=== PATIENT | male | born 1950 | race Caucasian/White ===

== ENCOUNTER 2017-03-18 19:07 | Inpatient (IN) | payer OTHER, MEDICAID ==
[~2017-03-18] VITALS: Ht 180.3 cm; Wt 88.0 kg
--- NOTE | 2017-03-18 19:11 | NUR ---
Patient ambulated to bed 3. RN evaluating patient at bedside. EKG completed by EMT.
[2017-03-18 19:15] VITALS: BP 179/92
--- NOTE | 2017-03-18 19:20 | NUR ---
67Y M BIB FAMILY C/O CHEST PAIN/AB PAIN X 1 DAY. PT STATES PAIN RESEMBLES AB PAIN LIKE GAS. PT STATES BURPING RELIEVES PAIN. PT STATES PAIN IS NON RADIATING, SUBSTERNAL. PT AAOX4. BREATHING IS UNLABORED AND CLEAR BI LAT.
[2017-03-18 19:41] LABS: BASOPHILS # (AUTO) 0.3 K/uL (0.00-0.22); EOSINOPHILS # (AUTO) 0.3 K/uL (0-0.4); HEMATOCRIT 40.2 % (36-52); HEMOGLOBIN 13.4 g/dL (12.0-18.0); LYMPHOCYTES # (AUTO) 2.1 K/uL (2.0-11.5); MEAN CORPUSCULAR HEMOGLOBIN 30 pg (27-31); MEAN CORPUSCULAR HGB CONC 33 g/dL (33-37); MEAN CORPUSCULAR VOLUME 89 fL (80-94); MONOCYTES # (AUTO) 0.6 K/uL (0.8-1.0); PLATELET COUNT (AUTO) 204 K/uL (140-450); RED BLOOD CELL COUNT(AUTO) 4.52 MIL/uL (4.20-6.10); RED CELL DISTRIBUTION WIDTH 13.4 % (11.6-13.7); WHITE BLOOD COUNT (AUTO) 11.3 K/uL (4.8-10.8)
[2017-03-18 19:56] LABS: PARTIAL THROMBOPLASTIN TIME 25.6 secs (22-35.6); PROTHROMBIN TIME 10.4 secs (10.8-13.4)
--- NOTE | 2017-03-18 19:57 | NUR ---
Dr. Yanez evaluating patient at bedside.
[2017-03-18 19:59] LABS: ALBUMIN 3.9 g/dL (3.4-5.0); ANION GAP 11.9 (8-16); CALCIUM 9.2 mg/dL (8.5-10.1); CARBON DIOXIDE 30.1 mmol/L (21-32); CREATININE 1.2 mg/dL (0.7-1.3); TOTAL BILIRUBIN 0.3 mg/dL (0.0-1.0); TOTAL PROTEIN, SERUM 7.3 g/dL (6.4-8.2)
[2017-03-18] MEDS ORDERED: NITROGLYCERIN 2% 1 GM PKT TP ONE (20:00)
[2017-03-18] MEDS ORDERED: MORPHINE SULFATE 4 MG/ML SYR IVP ONE ×2 (20:00→20:55)
[2017-03-18] MEDS ORDERED: ENALAPRILAT 2.5 MG/2 ML VIAL IVP ONE ×2 (20:00→20:50)
[2017-03-18] MEDS ORDERED: ASPIRIN 81 MG TAB.CHEW PO ONE (20:00)
--- NOTE | 2017-03-18 21:19 | NUR ---
Patient will be admitted to care of DR FOOTE . Admited tO TELE 119A. Will go to room 119A. Belongings list completed. Report to MEHRDAD WEINBERG .
--- NOTE | 2017-03-18 21:25 | NUR ---
RECEIVED FROM ER PER [place] ACCOMPANIED BY FAMILY MEMBER . AWAKE AND ALERT. ROM X 4. CLEAR SPEECH. NO SOB. TELEMETRY MONITORING ON THE FLOOR. DX. OF CHEST PAIN/ANGINA. CARE PLANS FOR THE NIGHT DISCUSSED WITH PT. CALL LIGHT USE EXPLAINED TO PT. RAPID RESPONSE MECHANISM EXPLAINED TO PT. ORIENTED TO ROOM AND CARE GIVERS. NO EDEMA NO OPEN AREAS TO SKIN NOTED. CTAB. NSR AT THIS TIME.
[2017-03-18 22:33] VITALS: BP 138/85
[2017-03-18] MEDS ORDERED: NITROGLYCERIN 0.4 MG TAB SL PRN (23:45)
[2017-03-18] MEDS ORDERED: MORPHINE SULFATE 2 MG/ML SYR IVP PRN (23:45)
[2017-03-19] VITALS (8 sets, daily range): BP systolic 125–143; BP diastolic 69–83
--- NOTE | 2017-03-19 00:31 | NUR ---
SLEEPING AT THIS TIME. NO COMPLAINTS OF FURTHER CHEST PAIN DONE. ON TELEMETRY MONITORING. REMINDED TO BE NPO STARTING 12 MIDNIGHT TO AM RT LIPID PANEL. "OK" ALERT AND ORIENTED X 4. NO SOB. ON HEPLOCK FOR IVF.
[2017-03-19 04:34] LABS: CHOL/HDL RATIO 3.2 (1-4.5)
[2017-03-19 04:45] LABS: CREATINE KINASE MB 17.9 ng/mL (0-3.6)
[2017-03-19] MEDS ORDERED: NITROGLYCERIN 2% 1 GM PKT TP SCH (05:00)
--- NOTE | 2017-03-19 05:13 | NUR ---
PAGED AND ABLE TO TALK WITH MD FOOTE RE: TROPONIN #2 IS - 5.902 REPORTED BY LAB. TECH. INFORMED CHARGE NURSE AND BED MAKER RE: MD FOOTE WANTS PT. TRANSFERRED TO ICU. WAITING FOR BED MAKER TO OK TRANSFER . REPORT GIVEN TO BILL WEINBERG OF ICU.
--- NOTE | 2017-03-19 05:21 | NUR ---
PT. DENIES PAIN AT THIS TIME. ENCOURAGE TO CALL FOR ANY HELP HE MAY NEED OR IF IN PAIN. A/O X 4. INFORMED PT. OF TRANSFER TO ICU.
--- NOTE | 2017-03-19 05:40 | NUR ---
TRANSFERRED TO ICU. RECEIVED BY LENARD HKAN. AWAKE AND ALERT. DENIES PAIN. PLACED ON 02 AT 2LPM/NC.
--- NOTE | 2017-03-19 05:45 | NUR ---
REPORT GIVEN BY LENARD CRONIN. RECEIVED PATIENT FROM TELE, VIA Needle. PT ABLE TO AMBULATE TO BED. AAOX4, ATTACHED TO DRIVE THRU ORDER TAKER, PULSE OXIMETER. IV ACCESS AT LEFT AC 18G, PATENT, INTACT. NO SIGNS OF DISTRESS AT THIS TIME. CALL LIGHT WITHIN REACH, BED IN LOW POSITION. SAFETY MEASURE ENSURE. WILL CONTINUE TO MONITOR.
--- NOTE | 2017-03-19 05:58 | NUR ---
PT TALKED TO , AWARE PT IN ICU
--- NOTE | 2017-03-19 06:38 | NUR ---
DR. FOOTE IN THE UNIT, NOTIFIED OF PATIENT'S LOW HEART RATE. WILL FOLLOW UP FOR ANY NEW ORDERS.
[2017-03-19] MEDS ORDERED: MORPHINE SULFATE 2 MG/ML SYR IVP PRN (06:55)
[2017-03-19] MEDS ORDERED: NITROGLYCERIN 0.4 MG TAB SL PRN (07:04)
[2017-03-19] MEDS ORDERED: DEXTROSE 50% 50 ML SYR IVP PRN (07:15)
[2017-03-19] MEDS ORDERED: INSULIN LISPRO SLIDING SCALE 100 UNITS/ML VIAL SUBQ PRN (07:15)
--- NOTE | 2017-03-19 07:15 | NUR ---
ASSUMED CARE FROM NIGHT RN. PATIENT IS AWAKE, ALERT, ORIENTED TO PERSON, PLACE, DATE AND TIME. SKIN WARM TO TOUCH WNL, NO EDEMA, REDNESS, WITH HAIR GROWTH AND +2 BILATERAL PEDAL PULSES. LEFT AC PERIPHERAL IV PATENT AND INTACT. URINE AND BOWEL CONTINENT, ABLE TO MAKE HIS NEEDS KNOWN. PATIENT STATED THAT CHEST PAIN IS SO MUCH BETTER THAN EARLIER. MADE COMFORTABLE IN BED. CALL LIGHT WITHIN REACH. WILL MONITOR PATIENT.
--- NOTE | 2017-03-19 07:15 | NUR ---
REPORT GIVEN TO LENARD NUNEZ FOR CONTINUITY OF CARE.
--- NOTE | 2017-03-19 07:30 | NUR ---
HEPARIN 5000 UNITS SUBQ AND NITRO-DUR 0.4MG GIVEN PER DR. FOOTE'S ORDERS. PATIENT TOLERATED WELL.
--- NOTE | 2017-03-19 07:30 | NUR ---
PATIENT'S AT BEDSIDE. CONCERNS AND QUESTIONS ANSWERED.
--- NOTE | 2017-03-19 08:07 | NUR ---
PATIENT HAS BEEN SCREENED AND CATEGORIZED MODERATE NUTRITION RISK. PATIENT WILL BE SEEN WITHIN 3-5 DAYS OF ADMISSION. 03/21/17-03/23/[address]
[2017-03-19] MEDS: BLOOD GLUCOSE MONITORING 1 DEV DEV FS SCH ×2 (08:29→11:29)
--- NOTE | 2017-03-19 08:30 | NUR ---
PATIENT'S STILL AT BEDSIDE. ASKING HER TO PROVING THE LIST OF HOME MEDICATION IF SHE CAN, BECAUSE THE PATIENT CANNOT REMEMBER THE DOSAGE AND THE NAME OF SOME MEDICATION WHICH SHE STATES THAT SHE WILL LOOK FOR IT WHEN SHE GOES BACK HOME.
[2017-03-19] MEDS ORDERED: NITROGLYCERIN 0.4 MG/HR PATCH TD SCH (09:00)
[2017-03-19] MEDS ORDERED: METOPROLOL 25 MG TAB PO SCH (09:00)
[2017-03-19] MEDS ORDERED: METOPROLOL SUCCINATE 50 MG TABER PO SCH (09:00)
[2017-03-19] MEDS ORDERED: PANTOPRAZOLE 40 MG INJ VIAL IVP SCH (09:00)
[2017-03-19] MEDS ORDERED: ASPIRIN 325 MG TABEC PO SCH (09:00)
[2017-03-19] MEDS ORDERED: ENOXAPARIN 30 MG/0.3 ML SYR SUBQ SCH (09:00)
--- NOTE | 2017-03-19 09:00 | NUR ---
DR. SANTANA IN AND SEEN PATIENT. NO NEW ORDERS MADE AT THIS TIME.
--- NOTE | 2017-03-19 09:18 | NUR ---
DR. KOEHLER IN AND SEEN PATIENT. WILL FOLLOW UP WITH ORDERS.
--- NOTE | 2017-03-19 09:25 | NUR ---
CARDIOLOGY GIVEN THE ORDER TO TRANSFER PATIENT TO HIGHER LEVEL OF CARE FOR STAT CARDIAC ANGIOGRAM. CASE MANAGEMENT MELISSA WAS NOTIFIED AND WILL WORK ON IT.
[2017-03-19] MEDS ORDERED: NACL 0.9% 1,000 ML IV SCH (09:30)
--- NOTE | 2017-03-19 10:04 | NUR ---
CM NOTE SPOKE W/ MAICOL CARTWRIGHT FOR [facility]. MADE AWARE THAT PER CARDIO CONSULT, IS RECOMMENDING CARDIAC CATH PROCEDURE. CM TO ARRANGE TRANSFER TO CONTRACTED FACILITY WITHIN INSURANCE NETWORK. DR. KOEHLER & JAK ACKERMAN MADE AWARE INITIAL REVIEW FAXED TO [facility] / FAX# [phone], ATTN: CHAY #[phone]
[2017-03-19] MEDS ORDERED: ONDANSETRON 4 MG/2 ML VIAL IVP PRN (10:35)
--- NOTE | 2017-03-19 10:35 | NUR ---
PATIENT NAUSEATED AND VOMITED WITH SMALL AMOUNT OF WHITE CLEAR MUCOUS APPROXIMATELY 25 ML. WAS NOTIFIED AND GIVEN THE ODER FOR ZOFRAN. ORDER IS CARRIED OUT.
--- NOTE | 2017-03-19 10:50 | NUR ---
DR KOEHLER MADE AWARE OF PATIENT HAD CHEST PAIN AND VOMITED ONCE ABOUT 25ML. MADE AWARE WELL, THAT MORPHINE AND ZOFRAN WERE GIVEN. TOLD HIM THAT EMERGENCY ROOM SPECIALIST IS STILL WORKING ON FINDING A FACILITY FOR THE PATIENT.
[2017-03-19 11:25] LABS: CREATINE KINASE MB 33.7 ng/mL (0-3.6)
--- NOTE | 2017-03-19 12:53 | NUR ---
REPORT GIVEN TO LENARD TOUSSAINT AT [facility].
--- NOTE | 2017-03-19 12:59 | NUR ---
CM NOTE PER MAICOL CARTWRIGHT FOR [facility], PATIENT WILL BE TRANSFERRED TO [facility], [address]. [facility] SCHEDULED TO BARBERING TEACHER PATIENT AROUND [id number]. DR. MAGO PENG WILL BE THE ACCEPTING MD. BED & ACCEPTING MD CONFIRMED W/ KELBY [facility] ([phone]). # FOR REPORT: [phone] [id number] LM W/ PATIENCE, ; MADE AWARE OF SCHEDULED TRANSPORT. JAK ACKERMAN & MAYRA WEINBERG MADE AWARE OF SCHEDULED TRANSPORT.
--- NOTE | 2017-03-19 13:20 | NUR ---
DR. KOEHLER MADE AWARE OF PATIENT GOING TO BE TRANSFERRED TO [facility].
--- NOTE | 2017-03-19 13:50 | NUR ---
TRANSFERRED TO [facility] VIA [facility]. PATIENT IN STABLE CONDITION. ACCOMPANIED BY [facility] PERSONNEL.
--- NOTE | 2017-03-19 14:40 | NUR ---
WAS NOTIFIED OF PATIENT WAS TRANSFERRED TO [facility] FOR CARDIAC ANGIOGRAM.
--- NOTE | 2017-03-19 15:15 | NUR ---
DR. SANTANA INFORMED OF PATIENT'S TRANSFER TO [facility]
[2017-03-19] MEDS ORDERED: SIMVASTATIN 40 MG TAB PO SCH (21:00)
== END 2017-03-19 13:50 | disposition short-term general hospital (02) | DRG 281 ==
LOC: MED 19:07 → MTU 23:23 → MIC 03-19 05:42
PROVIDERS: ADMIT Family Medicine; ATTEND Family Medicine
DX: I21.4 Non-ST elevation (NSTEMI) myocardial infarction (principal); I16.1 Hypertensive emergency; E11.9 Type 2 diabetes mellitus without complications; I10 Essential (primary) hypertension; E78.5 Hyperlipidemia, unspecified; Z87.891 Personal history of nicotine dependence; Z82.49 Family history of ischemic heart disease and other diseases of the circulatory system
CPT/HCPCS: 36415; 71010; 80053; 82550; 82553; 82948; 83880; 84484; 85025; 85610; 85730; 87081; 93005; 96374; 96375; 96376; 99291; C9113; J1644; J1815; J2270; J2405; J3490; J7030